=== PATIENT | female | born 1970 | race Caucasian/White ===

== ENCOUNTER 2021-01-12 16:05 | Emergency (ER) | payer OTHER ==
[~2021-01-12] VITALS: Ht 160 cm; Wt 117.9 kg
[2021-01-12] MEDS ORDERED: PROZAC10 M1 PO (16:22)
[2021-01-12] MEDS ORDERED: WELLBUTRIN 100100 MG PO (16:22)
[2021-01-12] MEDS ORDERED: AMBIEN 10 MG TA10 MG PO (16:22)
[2021-01-12] MEDS ORDERED: CRESTOR5 MG PO (16:22)
[2021-01-12] MEDS ORDERED: ZANAFLEX4 MG PO (17:36)
[2021-01-12] MEDS ORDERED: ZOFRAN ODT4 MG PO (17:36)
[2021-01-12] MEDS ORDERED: MECLIZINE HCL25 MG PO (17:36)
[2021-01-12 17:54] VITALS: BP 135/76
== END 2021-01-12 17:54 | disposition home or self-care (01) ==
LOC: M.ERS 16:05
DX: S06.0X0A Concussion without loss of consciousness, initial encounter (principal); S16.1XXA Strain of muscle, fascia and tendon at neck level, initial encounter; E78.5 Hyperlipidemia, unspecified; V89.2XXA Person injured in unspecified motor-vehicle accident, traffic, initial encounter; Y93.89 Activity, other specified; Y92.89 Other specified places as the place of occurrence of the external cause; Y99.8 Other external cause status